=== PATIENT | male | born 1980 | race Caucasian/White ===

== ENCOUNTER 2016-10-31 17:25 | Emergency (ER) | payer BC ==
[2016-10-31] MEDS ORDERED: Ondansetron INJ* 2 MG/ML VIAL IV ONE (17:38)
[2016-10-31] MEDS ORDERED: NS 0.9% 1000 ML* 2,000 ML IV ONE (17:38)
[2016-10-31] MEDS ORDERED: Morphine INJ* 4 MG/ML 1 ML SYRINGE IV ONE ×2 (17:38→18:08)
--- NOTE | 2016-10-31 17:43 | ED ---
Hans Qureshi Billy, scribed for Consuelo Urias MD on 10/31/16 at 1742 . Abdominal Pain/Male - HPI Summary HPI Summary: Patient is a 36 year-old male coming to [facility] with a co-worker for evaluation of sudden onset of abdominal pain at 1530 today. He states that the pain began while he was walking, and he denies any trauma or strenuous exertion at onset. The pain is a non-radiating, sharp stabbing pain. Patient reports that it feels similar to previous episodes of diverticulitis, but today's episode began much more suddenly than usual. He took Tums without any improvement. Denies any pain in the genitals. Nothing makes his pain better or worse. No fevers, chills. pt had a soft BM this am. Pt reports feels constipated. Pt had a near syncopal episode in [facility] upon arrival to ED. Denies any PSHx of the abdomen. All medications were reviewed this visit. - History of Current Complaint Chief Complaint: EDDizziness Stated Complaint: ABD PAIN Time Seen by Provider: 10/31/16 17:32 Hx Obtained From: Patient Onset/Duration: Sudden Onset, Lasting Hours Timing: Constant Severity Initially: Moderate Severity Currently: Moderate Pain Intensity: 8 Pain Scale Used: 0-10 Numeric Radiates: No Character: Sharp Aggravating Factor(s): Nothing Alleviating Factor(s): Nothing - Allergies/Home Medications Allergies/Adverse Reactions: Allergies Allergy/AdvReac Type Severity Reaction Status Date / Time Bee Venom Allergy Swelling Verified 10/31/16 17:32 PMH/Surg Hx/FS Hx/Imm Hx Endocrine/Hematology History: Denies: Hx Diabetes Cardiovascular History: Denies: Hx Coronary Artery Disease, Hx Myocardial Infarction GI History: Reports: Hx Diverticulosis, Hx Ulcer, Other GI Disorders - SBO Infectious Disease History: No Infectious Disease History: Denies: Traveled Outside the [place] in Last 30 Days - Family History Known Family History: Positive: Cardiac Disease - Social History Alcohol Use: None Substance Use Type: Reports: None Smoking Status (MU): Current Every Day Smoker Review of Systems Constitutional: Negative Eyes: Negative ENT: Negative Cardiovascular: Negative Respiratory: Negative Positive: Abdominal Pain Genitourinary: Negative Musculoskeletal: Negative Skin: Negative Neurological: Negative Psychological: Normal All Other Systems Reviewed And Are Negative: Yes Physical Exam Triage Information Reviewed: Yes Vital Signs On Initial Exam: Initial Vitals Temp Pulse Resp BP Pulse Ox 98.9 F 90 18 111/62 100 10/31/16 17:33 10/31/16 17:33 10/31/16 17:33 10/31/16 17:33 10/31/16 17:33 Vital Signs Reviewed: Yes Diagnostics - Vital Signs Vital Signs Temp Pulse Resp BP Pulse Ox 10/31/16 17:33 98.9 F 90 18 111/62 100 - Laboratory Result Diagrams: 10/31/16 17:35 10/31/16 17:35 Lab Statement: Any lab studies that have been ordered have been reviewed, and results considered in the medical decision making process. - CT CTA C/A/P CT Interpretation Completed By: Radiologist - 1. NO AORTIC ANEURYSM. NO INTIMAL FLAP TO SUGGEST DISSECTION. 2. NO PULMONARY ARTERIAL FILLING DEFECT TO SUGGEST PULMONARY EMBOLISM. 3. SIGMOID DIVERTICULITIS, WITHOUT LOCULATED FLUID COLLECTION TO SUGGEST ABSCESS. 4. EVIDENCE OF EXPOSURE TO GRANULOMATOUS DISEASE. - EKG 1729 EKG Interpretation: NSR 74 bpm, no acute ST/T-wave changes Re-Evaluation - Re-Evaluation First Eval Re-Evaluation Time: 18:10 Change: Improved Comment: Pain improved from 10/10 to 5/10 after morphine. Second Eval Re-Evaluation Time: 19:15 Change: Improved Comment: reviewed CT scan with pt. Will give IV cipro, flagyl. Pt would like to try discharge with oral analgesia. will attempt oral tabs in ED - decline at present Third Eval Re-Evaluation Time: 20:59 Change: Improved Comment: Patient expressed that he would like to try having food and to be discharged soon. Fourth Eval Re-Evaluation Time: 21:45 Comment: Pt pain intensified - not controlled with percocet - will admit obs. d /w hospitalist -accepting pt Abdominal Pain Fem Course/Dx - Diagnoses Provider Diagnoses: Diverticulitis - Provider Notifications Discussed Care Of Patient With: Dr. Story (hospitalist) at 2140: accepts admission. Discharge - Discharge Plan Condition: Stable Disposition: ADMITTED TO [facility] Prescriptions: Ciprofloxacin TAB* [Cipro 500 MG TAB*] 500 mg PO BID #20 tab Metronidazole [Flagyl 500 MG TAB] 500 mg PO TID #30 tab oxyCODONE/Acetamin 5/325 MG* [Percocet 5/325 TAB*] 1 tab PO Q8H PRN #15 tab MDD 3 PRN Reason: Pain Patient Education Materials: Diverticulitis (ED) Forms: *Work Release Referrals: No Primary Care Phys,NOPCP [Primary Care Provider] - Additional Instructions: - Stay well hydrated - drink plenty of non-alcoholic, non-caffinated beverages - Take antibiotics as prescribed until gone - It is okay to take tylenol product (Tylenol or Percocet) every 6 hours for pain. Take with food - do NOT drive, operate machinery or drink alcohol while taking Percocet - It is recommended you take bland diet - dry toast, scrambled eggs, plain noodles ,plenty of non-alcoholic, non-caffinated beverages for the next 2-3 days - Because you do not have a doctor - contact the physician referral center tomorrow to schedule a follow-up appointment. Contact the referral center or return to the emergency department with questions or concerns The documentation as recorded by the Hans crouch Billy accurately reflects the service I personally performed and the decisions made by me, Consuelo Urias MD.
[2016-10-31 17:48] LABS: Hematocrit 49 % (42-52); Hemoglobin 16.5 g/dl (14.0-18.0); Mean Corpuscular HGB Conc 34 g/dl (31-36); Mean Corpuscular Hemoglobin 30 pg (27-31); Mean Corpuscular Volume 88 fL (80-94); Mean Platelet Volume 10 um3 (7.4-10.4); Red Blood Count 5.52 10^6/ul (4.0-5.4); Red Cell Distribution Width 13 % (10.5-15); White Blood Count 13.2 10^3/ul (3.5-10.8)
[2016-10-31 18:08] LABS: Albumin 4.3 g/dL (3.2-5.2); BUN/Creatinine Ratio 12.1 (8-20); Calcium 9.5 mg/dL (8.6-10.3); EGFR African American 73.7 (>60); EGFR Non-African American 57.3 (>60); Globulin 2.7 g/dL (2-4); Magnesium 2.1 mg/dL (1.9-2.7); Total Bilirubin 0.5 mg/dL (0.2-1.0); Troponin I 0.01 ng/mL (<0.04)
[2016-10-31 18:09] LABS: Potassium 3.9 mmol/L (3.5-5.0)
[2016-10-31] MEDS ORDERED: Iodixanol* (CONTRAST) 320 MG/ML 100 ML SDV IV ONE (18:12)
--- NOTE | 2016-10-31 18:55 | RAD ---
HISTORY: Epigastric and mid abdominal pain COMPARISONS: April 05, 2016 TECHNIQUE: Multiple contiguous axial CT scans were obtained of the chest, abdomen, and pelvis after the administration of intravenous contrast. Coronal and sagittal multiplanar reformations are submitted for review.. Oral contrast was not administered. 3-D volumetric reconstructions of the aorta are also submitted for review FINDINGS: CHEST NECK AND THYROID: The lower neck and thyroid are unremarkable. CHEST WALL: There is no lower cervical, axillary, or supraclavicular lymphadenopathy by size criteria. HEART AND PERICARDIUM: The heart is unremarkable. AORTA AND PULMONARY VASCULATURE: The aorta and pulmonary vasculature are normal. There is no pulmonary arterial filling defect to suggest pulmonary was. There is no aneurysmal patient of the aorta or intimal flap to suggest dissection. MEDIASTINUM: There are calcified mediastinal lymph nodes LORRIE: There are calcified hilar lymph nodes AIRWAY AND ESOPHAGUS: The airway is unremarkable, without endobronchial filling defect. The esophagus is grossly normal. LUNG PARENCHYMA: There are multiple calcified granulomas PLEURA: No pleural abnormalities are noted. BONES AND SOFT TISSUES: No bone or soft tissue abnormalities are noted. ABDOMEN/PELVIS: LIVER: The liver is normal in shape, size, contour, and attenuation. BILE DUCTS: There is no intrahepatic or extrahepatic biliary dilatation. GALLBLADDER: The gallbladder is normal, without pericholecystic inflammatory change. PANCREAS: The pancreas is normal, without mass or ductal dilatation. SPLEEN: Normal in size and appearance. UPPER GI TRACT: Evaluation of the gastrointestinal tract is limited by incomplete gastric distention. The upper GI tract is unremarkable. There is a calcified lymph node along the cardia of the stomach. SMALL BOWEL \T\ MESENTERY: The small bowel is normal in contour, course, and caliber. There is no obstruction or dilatation. COLON: There is diverticulosis of the sigmoid colon. There is stranding of the pericolonic fat at the rectosigmoid junction with a small amount of fluid along the lateroconal fascia. There is a tubular, vermiform, hollow viscus that is blind ending, and originates from the cecum, consistent with a normal appendix. There is no periappendiceal inflammatory change. ADRENALS: Normal bilaterally. KIDNEYS: A simple renal cyst is noted in the left BLADDER: The bladder is smooth in contour. PELVIC ORGANS: The prostate gland is normal. The seminal vesicles are symmetric. AORTA: The aorta is normal. There is no aneurysmal dilatation or intimal flap to suggest dissection IVC: Unremarkable LYMPH NODES: There is no lymphadenopathy by size criteria. ABDOMINAL WALL: There is no evidence for abdominal wall hernia. BONES: Unremarkable OTHER: None IMPRESSION: 1. NO AORTIC ANEURYSM. NO INTIMAL FLAP TO SUGGEST DISSECTION. 2. NO PULMONARY ARTERIAL FILLING DEFECT TO SUGGEST PULMONARY EMBOLISM. 3. SIGMOID DIVERTICULITIS, WITHOUT LOCULATED FLUID COLLECTION TO SUGGEST ABSCESS. 4. EVIDENCE OF EXPOSURE TO GRANULOMATOUS DISEASE.
[2016-10-31] MEDS ORDERED: Ciprofloxacin 400MG IVPREMIX(* 400 MG/200 ML BAG IVPB ONE (19:31)
[2016-10-31] MEDS ORDERED: metroNIDAZOLE IV 500 MG/100ML* 500 MG/100 ML BAG IVPB ONE (19:32)
[2016-10-31] MEDS ORDERED: oxyCODONE/Acetamin 5/325 MG* TAB PO ONE (21:03)
--- NOTE | 2016-11-01 00:33 | CONS ---
CONSULTATION REPORT: DATE OF CONSULT: 10/31/16 - EMERGENCY DEPT TIME OF EVALUATION: 2300. REASON FOR CONSULT: Evaluation for admission REQUESTING PHYSICIAN FOR CONSULTATION: Dr. Murray. CHIEF COMPLAINT: Abdominal pain. HISTORY OF PRESENT ILLNESS: This is a 36-year-old male with past medical history of diverticulitis who presents to the emergency room with abdominal pain , bloating and diarrhea. The patient states that this will be his fifth time of diverticulitis. His symptoms started 2 days ago with some diarrhea, abdominal pain, no fever. He states he normally does not drink alcohol, but few days ago, over the weekend, he celebrates his brother's birthday, was drinking, was not taking good care of himself. He did have some nausea. He had a presyncopal event in the waiting room. The pain got worse and it was a sudden onset. Today, the symptoms have been going on as mentioned for a few days. He states this has been in new location than his prior diverticulitis episodes. He denies any chest pain or shortness of breath. In the emergency room, the patient have labs, imaging. He had an episode where he became very upset, asking for food, pain medication. He was given 2 Percocet and had a turkey sandwich on my encounter. I saw the patient. He states he felt much better. The pain is still there, but manageable. He is asking to be discharged to home with followup with a primary care physician. We spoke about getting him set up with a inspector receiving which he is agreeable to as well. Otherwise, remaining review of systems is negative. PAST MEDICAL HISTORY: History of diverticulitis. This is his fourth episode, most recent back in April 2016. MEDICATIONS: None. ALLERGIES: BEE VENOM. FAMILY HISTORY: Reviewed and noncontributory. SOCIAL HISTORY: The patient is a duty officer. Rare alcohol use. He smokes about a pack every day and half past 18 years. His healthcare proxy is his mother, Raegan Daniel. REVIEW OF SYSTEMS: As mentioned in the HPI. PHYSICAL EXAM: Vitals: Temp 98.9, pulse rate 90, respiratory rate 18, oxygen saturation 100% on room air, blood pressure 111/62. General: In no acute distress. Resting comfortably with friend at the bedside. HEENT: Pupils equal and reactive. Anicteric. Head is normocephalic. Oropharynx: Mucous membranes moist. Neck is supple. No lymphadenopathy. Cardiac: Regular rate and rhythm. No murmurs, rubs, or gallops. Respiratory: Clear to auscultation. No wheezes, rhonchi or rales. Abdomen: Hypoactive bowel sounds. Soft. Nondistended. There was some mild tenderness to suprapubic region. Extremities : No clubbing, cyanosis or edema. +1 DPs. Neurologic: Alert and oriented x3. No focal neurologic deficits. DIAGNOSTIC STUDIES/LAB DATA: White count 30.2, hemoglobin 16.5, hematocrit 49, platelets 178. Sodium 135, potassium 3.9, chloride 101, bicarb 28, BUN 17, creatinine 1.4, glucose 101. Urine is unremarkable. Radiographic data: Abdominal and pelvic CT diverticulitis without loculated fluid collection to suggest abscess. ASSESSMENT: This is a 36-year-old male with past medical history of diverticulitis who presents to the emergency room with abdominal pain and found to have diverticulitis on his imaging studies. The patient's pain has improved. He is able to tolerate a turkey sandwich. His pain was managed with 2 Percocet. He is interested in going home. I discussed with Dr. Murray continuing him on Cipro and Flagyl and Percocet as needed for pain. I discussed with the patient bland diet to advance as tolerated. He should follow up with a inspector receiving for further investigation of his recurrent diverticulitis. The patient was also noted to have an elevated creatinine. I suspect this is secondary to his decrease in p.o. intake. Recommended hydration and followup with his primary for renal function. My recommendations were discussed with Dr. Murray. PATIENT TIME: Greater than 60 minutes spent doing this consultation, more than half the time spent in direct patient contact. [id number]/[facility] #: [id number] [facility]
[2016-11-01] MEDS ORDERED: oxyCODONE/Acetamin 5/325 MG* TAB PO ONE (00:48)
[2016-11-01 01:18] VITALS: BP 107/60
--- NOTE | 2016-11-01 01:47 | ED ---
Lissy Qureshi Alok, scribed for Paxton Murray on 11/01/16 at 0015 . Progress - Progress Note Progress Note: Pt was signed out after evaluation from hospitalist. - Results/Orders Results/Orders: Pt was signed out after evaluation from hospitalist. Pt states he wants to go home and will be discharged with diverticulitis. Re-Evaluation - Re-Evaluation First Eval Re-Evaluation Time: 18:10 Change: Improved Comment: Pain improved from 10/10 to 5/10 after morphine. Second Eval Re-Evaluation Time: 19:15 Change: Improved Comment: reviewed CT scan with pt. Will give IV cipro, flagyl. Pt would like to try discharge with oral analgesia. will attempt oral tabs in ED - decline at present Third Eval Re-Evaluation Time: 20:59 Change: Improved Comment: Patient expressed that he would like to try having food and to be discharged soon. Course/Dx - Diagnoses Provider Diagnoses: Diverticulitis - Provider Notifications Discussed Care Of Patient With: Dr. Story (hospitalist) at 2140: accepts admission. Dr. Story (hospitalist) @ 0017 - Pt would like to go home and will be discharged The documentation as recorded by the Lissy cruoch Alok accurately reflects the service I personally performed and the decisions made by me, Paxton Murray.
== END 2016-11-01 00:35 | disposition short-term general hospital (02) ==
LOC: ED 17:25
DX: K57.92 Diverticulitis of intestine, part unspecified, without perforation or abscess without bleeding (principal); R10.9 Unspecified abdominal pain; F17.210 Nicotine dependence, cigarettes, uncomplicated
CPT/HCPCS: 36415; 71275; 74174; 80053; 82550; 83605; 83690; 83735; 84484; 85025; 93005; 96374; 96375; 99283; A9270-GY; J0744; J2270; J2405; Q9967

== ENCOUNTER 2017-05-31 20:10 | Emergency (ER) | payer BC ==
[2017-05-31 21:32] LABS: Hematocrit 46 % (42-52); Hemoglobin 15.9 g/dl (14.0-18.0); Mean Corpuscular HGB Conc 34 g/dl (31-36); Mean Corpuscular Hemoglobin 31 pg (27-31); Mean Corpuscular Volume 89 fL (80-94); Mean Platelet Volume 10 um3 (7.4-10.4); Red Blood Count 5.17 10^6/ul (4.0-5.4); Red Cell Distribution Width 13 % (10.5-15); White Blood Count 15.4 10^3/ul (3.5-10.8)
[2017-05-31 21:48] LABS: ALT 26 U/L (7-52); Albumin 4.3 g/dL (3.2-5.2); Alkaline Phosphatase 80 U/L (34-104); BUN/Creatinine Ratio 13.2 (8-20); Blood Urea Nitrogen 16 mg/dL (6-24); CO2 Carbon Dioxide 28 mmol/L (22-32); Calcium 9.5 mg/dL (8.6-10.3); Chloride 103 mmol/L (101-111); EGFR African American 87.3 (>60); EGFR Non-African American 67.9 (>60); Globulin 2.2 g/dL (2-4); Glucose 81 mg/dL (70-100); Lipase 38 U/L (11.0-82.0); Sodium 137 mmol/L (133-145); Total Protein 6.5 g/dL (6.4-8.9)
[2017-05-31 21:55] LABS: Anion Gap 6 mmol/L (2-11)
[2017-05-31] MEDS ORDERED: Morphine INJ* 4 MG/ML 1 ML CARPUJECT IV ONE (22:42)
[2017-05-31] MEDS ORDERED: Ondansetron INJ* 2 MG/ML VIAL IV ONE (22:42)
[2017-05-31] MEDS ORDERED: Ketorolac INJ* 30 MG/ML 1 ML VIAL IV PUSH ONE (23:16)
[2017-05-31] MEDS ORDERED: NS 0.9% 1000 ML* 1,000 ML IV ONE (23:16)
[2017-06-01] MEDS ORDERED: Ciprofloxacin 400MG IVPREMIX(* 400 MG/200 ML BAG IVPB ONE (00:08)
[2017-06-01] MEDS ORDERED: metroNIDAZOLE TAB* 250 MG PO ONE (00:08)
[2017-06-01 00:30] LABS: Urine Bilirubin Negative (Negative); Urine Glucose Negative (Negative); Urine Nitrite Negative (Negative)
[2017-06-01 01:28] VITALS: BP 118/63
--- NOTE | 2017-06-01 04:40 | ED ---
Kim Qureshi Edward, scribed for Jeremy Carpio MD on 05/31/17 at 2234 . Abdominal Pain/Male - HPI Summary HPI Summary: 36 y/o male presents to the ED c/o sudden onset, constant ABD pain starting 2 hr [employer]ER GRAIN. The pain is described as a pressure, like a "heel of a boot". The pain is located in the lower ABD; pt thinks the L side might be worse but is unsure. Pt states he had a stressful night. PMHx diverticulitis. Denies ABD surgical history. Associated sx: nausea due to pain (resolved). - History of Current Complaint Chief Complaint: EDAbdPain Stated Complaint: ABD PAIN Hx Obtained From: Patient Onset/Duration: Sudden Onset, Lasting Hours Timing: Constant Severity Initially: Severe Severity Currently: Severe Pain Intensity: 7 Pain Scale Used: 0-10 Numeric Location: Suprapubic Character: Other: - pressure, "heel of a boot" Aggravating Factor(s): Nothing Alleviating Factor(s): Nothing Associated Signs And Symptoms: Positive: Nausea - Allergies/Home Medications Allergies/Adverse Reactions: Allergies Allergy/AdvReac Type Severity Reaction Status Date / Time Bee Venom Allergy Swelling Verified 10/31/16 17:32 PMH/Surg Hx/FS Hx/Imm Hx Previously Healthy: No Endocrine/Hematology History: Denies: Hx Diabetes Cardiovascular History: Denies: Hx Coronary Artery Disease, Hx Myocardial Infarction GI History: Reports: Hx Diverticulosis, Hx Ulcer, Other GI Disorders - SBO Infectious Disease History: No Infectious Disease History: Denies: Traveled Outside the [place] in Last 30 Days - Family History Known Family History: Positive: Cardiac Disease - Social History Occupation: Employed Full-time - works in a correction Alcohol Use: None Hx Substance Use: No Substance Use Type: Reports: None Hx Tobacco Use: Yes Smoking Status (MU): Current Every Day Smoker Review of Systems Constitutional: Negative Eyes: Negative ENT: Negative Cardiovascular: Negative Respiratory: Negative Positive: Abdominal Pain, Nausea Genitourinary: Negative Musculoskeletal: Negative Skin: Negative Neurological: Negative Psychological: Normal All Other Systems Reviewed And Are Negative: Yes Physical Exam Triage Information Reviewed: Yes Vital Signs On Initial Exam: Initial Vitals Temp Pulse Resp BP Pulse Ox 97.2 F 71 18 144/92 100 05/31/17 20:16 05/31/17 20:16 05/31/17 20:16 05/31/17 20:16 05/31/17 20:16 Vital Signs Reviewed: Yes Appearance: Positive: Well-Appearing, Pain Distress - Mild Skin: Positive: Warm, Skin Color Reflects Adequate Perfusion, Dry Head/Face: Positive: Normal Head/Face Inspection Eyes: Positive: EOMI, KATHERINE ENT: Positive: Normal ENT inspection Neck: Positive: Supple, Nontender Respiratory/Lung Sounds: Positive: Breath Sounds Present, Wheezes - Mild wheeze @ R base that clears with cough Cardiovascular: Positive: RRR, Pulses are Symmetrical in both Upper and Lower Extremities Abdomen Description: Positive: Soft, Other: - Tenderness @ LLQ and suprapubic region Bowel Sounds: Positive: Present Musculoskeletal: Positive: Normal, Strength/ROM Intact Neurological: Positive: Normal, Sensory/Motor Intact Diagnostics - Vital Signs Vital Signs Temp Pulse Resp BP Pulse Ox 05/31/17 20:16 97.2 F 71 18 144/92 100 - Laboratory Lab Results: Lab Results 05/31/17 05/31/17 05/31/17 Range/Units 21:15 21:15 21:15 WBC 15.4 H (3.5-10.8) 10^3/ul RBC 5.17 (4.0-5.4) 10^6/ul Hgb 15.9 (14.0-18.0) g/dl Hct 46 (42-52) % MCV 89 (80-94) fL MCH 31 (27-31) pg MCHC 34 (31-36) g/dl RDW 13 (10.5-15) % Plt Count 176 (150-450) 10^3/ul MPV 10 (7.4-10.4) um3 Neut % (Auto) 79.8 (38-83) % Lymph % (Auto) 16.5 L (25-47) % Hitchcock % (Auto) 2.6 (1-9) % Eos % (Auto) 0.7 (0-6) % Baso % (Auto) 0.4 (0-2) % Absolute Neuts (auto) 12.3 H (1.5-7.7) 10^3/ul Absolute Lymphs (auto) 2.6 (1.0-4.8) 10^3/ul Absolute Monos (auto) 0.4 (0-0.8) 10^3/ul Absolute Eos (auto) 0.1 (0-0.6) 10^3/ul Absolute Basos (auto) 0.1 (0-0.2) 10^3/ul Absolute Nucleated RBC 0.01 10^3/ul Nucleated RBC % 0.1 Sodium 137 (133-145) mmol/L Potassium TNP Chloride 103 (101-111) mmol/L Carbon Dioxide 28 (22-32) mmol/L Anion Gap 6 (2-11) mmol/L BUN 16 (6-24) mg/dL Creatinine 1.21 H (0.67-1.17) mg/dL Est GFR ( Amer) 87.3 (>60) Est GFR (Non-Af Amer) 67.9 (>60) BUN/Creatinine Ratio 13.2 (8-20) Glucose 81 (70-100) mg/dL Lactic Acid 0.8 (0.5-2.0) mmol/L Calcium 9.5 (8.6-10.3) mg/dL Total Bilirubin 0.40 (0.2-1.0) mg/dL AST TNP ALT 26 (7-52) U/L Alkaline Phosphatase 80 (34-104) U/L C-React Prot High Sens 1.22 mg/L Total Protein 6.5 (6.4-8.9) g/dL Albumin 4.3 (3.2-5.2) g/dL Globulin 2.2 (2-4) g/dL Albumin/Globulin Ratio 2.0 (1-3) Lipase 38 (11.0-82.0) U/L Result Diagrams: 05/31/17 21:15 05/31/17 21:15 Lab Statement: Any lab studies that have been ordered have been reviewed, and results considered in the medical decision making process. - CT ABD/PEL CT CT Interpretation: No Acute Changes - Bilateral lung base calcified granulomata present. There is abnormal wall thickening involving the proximal sigmoid colon containing diverticula with surrounding mesenteric induration consistent with acute diverticulitis. No CT evidence of perforation, extraluminal air or abscess identified. No evidenc of mechanical bowel obstrcution. no evidence of gallstone or urinary sotne. Exophytic left renal cortical cyst. Normal appendix visualized. CT Interpretation Completed By: Radiologist - ED PHYSICIAN REVIEWS AND AGREES Re-Evaluation - Re-Evaluation 1 Re-Evaluation Time: 00:01 Change: Improved Comment: Discuss CT results and plan of care. Pt does not want to be admitted and will be d/c home. Abdominal Pain Fem Course/Dx - Course Course Of Treatment: Pt with recurrent diverticulitis. CT proven again today. Pt does not want to be admitted and will be d/c home -- 1st dose antibiotics given here. Refer to surgery given recurrent disease. May need partial colectomy in future. - Diagnoses Differential Diagnosis/HQI/PQRI: Diverticulitis, Ureteral Stone Provider Diagnoses: Diverticulitis Discharge - Discharge Plan Condition: Improved Disposition: HOME Prescriptions: Ciprofloxacin TAB* [Cipro 500 MG TAB*] 500 mg PO BID #14 tab HYDROcodone/ACETAMIN 5-325 MG* [[place] 5-325 TAB*] 1 tab PO Q6H PRN #12 tab MDD 4 tablets PRN Reason: Pain - Abdominal Metronidazole [Flagyl 500 MG TAB] 500 mg PO TID #21 tab Patient Education Materials: Diverticulitis (ED), Diverticulitis Diet (ED) Forms: *Work Release Referrals: Keith Spencer MD [Medical Doctor] - Additional Instructions: Primary care referral given. Return with fever, vomiting, uncontrolled pain, worse or other concerns. The documentation as recorded by the Kim crouch Edward accurately reflects the service I personally performed and the decisions made by me, Jeremy Carpio MD.
--- NOTE | 2017-06-01 07:54 | RAD ---
INDICATION: Left lower quadrant pain. History of diverticulitis COMPARISON: CT chest/abdomen/pelvis October 31, 2016 TECHNIQUE: Noncontrast axial source images were obtained from the hemidiaphragms to the symphysis pubis. This examination was ordered using a renal stone protocol which is performed without oral or intravenous contrast and therefore has inherent limitations when used to evaluate other intra-abdominal or intrapelvic pathology. Consider conventional contrast enhanced imaging if clinically indicated. Lung bases: There are calcified granulomas in the lung bases. Liver: The liver is normal in size. Noncontrast imaging shows no evidence of a hepatic mass or ductal dilatation. Gallbladder: There are no calcified gallstones. There is no evidence of wall thickening or pericholecystic fluid.. Spleen: The spleen is normal in size. The noncontrast CT appearance is remarkable for splenic granulomas. Pancreas: Noncontrast imaging shows no pancreatic mass or ductal dilitation. Adrenal glands: No masses are identified. Kidneys/Bladder: There is no evidence of nephrolithiasis or CT evidence of hydronephrosis. Noncontrast imaging shows a 2.4 cm midpole left renal cyst. The bladder is unremarkable.. Adenopathy: There is no evidence of intraperitoneal or retroperitoneal adenopathy. Evaluation is limited without oral contrast. Fluid collections: There is no localized fluid collection but there is perienteric stranding at the level the sigmoid colon consistent with inflammatory response.. Vessels: The aorta and iliac vessels are normal in caliber. There are no significant atherosclerotic changes. The IVC appears normal Pelvic organs: The prostate and seminal vesicles appear normal GI tract: Evaluation is limited as no oral contrast was given. There are no gross abnormalities the upper GI tract. There is bowel wall thickening of the sigmoid colon with perienteric stranding. There are multiple diverticula. The findings are compatible with recurrent acute diverticulitis. There are no findings of obstruction, perforation, or abscess. Soft tissues: No soft tissue abnormalities of the extraperitoneal abdomen or pelvis are identified. Osseous structures: There are no acute osseous findings. IMPRESSION: DIVERTICULITIS SIGMOID COLON WITHOUT OBSTRUCTION, PERFORATION OR ABSCESS.
== END 2017-06-01 01:43 | disposition home or self-care (01) ==
LOC: ED 20:10
DX: K57.92 Diverticulitis of intestine, part unspecified, without perforation or abscess without bleeding (principal); F17.200 Nicotine dependence, unspecified, uncomplicated
CPT/HCPCS: 36415; 74176; 80053; 81003; 83605; 83690; 85025; 86141; 96360; 96374; 96375; 99283; A9270-GY; J0744; J1885; J2270; J2405

== ENCOUNTER 2018-02-13 22:01 | Emergency (ER) | payer BC ==
[2018-02-13] MEDS ORDERED: oxyCODONE TAB* 5 MG TAB PO ONE (22:50)
--- NOTE | 2018-02-13 22:50 | ED ---
Throat Pain/Nasal Congestion - HPI Summary HPI Summary: Patient complains of dental pain in right upper rear molar starting today. Patient states he felt like his tooth broke off while eating an apple. States pain 10 out of 10. Denies purulent discharge, fever, dysphagia, sore throat, ear pain, CODY, cough. Medical history is none. - History of Current Complaint Chief Complaint: EDDentalPain Hx Obtained From: Patient Onset/Duration: Sudden Onset Severity: Severe Associated Signs And Symptoms: Positive: Negative Cough: None - Allergies/Home Medications Allergies/Adverse Reactions: Allergies Allergy/AdvReac Type Severity Reaction Status Date / Time bee venom protein (honey bee) Allergy Swelling Verified 02/13/18 22:09 PMH/Surg Hx/FS Hx/Imm Hx Endocrine/Hematology History: Denies: Hx Anticoagulant Therapy, Hx Diabetes Cardiovascular History: Denies: Hx Coronary Artery Disease, Hx Myocardial Infarction GI History: Reports: Hx Diverticulosis, Hx Ulcer, Other GI Disorders - SBO Infectious Disease History: No Infectious Disease History: Denies: Traveled Outside the [place] in Last 30 Days - Family History Known Family History: Positive: Cardiac Disease - Social History Alcohol Use: None Hx Substance Use: No Substance Use Type: Reports: None Hx Tobacco Use: Yes Smoking Status (MU): Current Every Day Smoker Review of Systems Constitutional: Negative Eyes: Negative Positive: Dental Pain Cardiovascular: Negative Respiratory: Negative Gastrointestinal: Negative Genitourinary: Negative Musculoskeletal: Negative Skin: Negative Neurological: Negative Psychological: Normal All Other Systems Reviewed And Are Negative: Yes Physical Exam - Summary Physical Exam Summary: Caries evident at rear most upper molar. No indication of abscess, purulent drainage, swelling, or lesions. Triage Information Reviewed: Yes Vital Signs On Initial Exam: Initial Vitals Temp Pulse Resp BP Pulse Ox 97.8 F 77 18 136/79 96 02/13/18 22:06 02/13/18 22:06 02/13/18 22:06 02/13/18 22:06 02/13/18 22:06 Vital Signs Reviewed: Yes Appearance: Positive: Well-Appearing Skin: Positive: Warm Head/Face: Positive: Normal Head/Face Inspection Eyes: Positive: Normal ENT: Positive: Normal ENT inspection Dental: Positive: Gross Decay/Caries @ Neck: Positive: Supple Respiratory/Lung Sounds: Positive: Clear to Auscultation Cardiovascular: Positive: Normal Abdomen Description: Positive: Nontender Musculoskeletal: Positive: Normal Neurological: Positive: Normal Psychiatric: Positive: Normal AVPU Assessment: Alert - [place] Coma Scale Best Eye Response: 4 - Spontaneous Best Motor Response: 6 - Obeys Commands Best Verbal Response: 5 - Oriented Coma Scale Total: 15 Diagnostics - Vital Signs Vital Signs Temp Pulse Resp BP Pulse Ox 02/13/18 22:06 97.8 F 77 18 136/79 96 - Laboratory Lab Statement: Any lab studies that have been ordered have been reviewed, and results considered in the medical decision making process. EENT Course/Dx - Course Course Of Treatment: Patient complains of dental pain in right upper rear molar starting today. Patient states he felt like his tooth broke off while eating an apple. States pain 10 out of 10. Denies purulent discharge, fever, dysphagia, sore throat, ear pain, CODY, cough. Medical history is none. Physical exam:Caries evident at rear most upper molar. No indication of abscess , purulent drainage, swelling, or lesions. Rx for Pen-Vee K and hydrocodone. Patient started here with same. Follow-up with dental surgeon. - Diagnoses Provider Diagnoses: Pain, dental Discharge - Sign-Out/Discharge Documenting (check all that apply): Patient Departure - Discharge Plan Condition: Stable Disposition: HOME Prescriptions: Oxycodone HCl 5 mg PO TID 2 Days #9 tablet MDD 3 tabs Penicillin VK 500 MG TAB(NF) [Penicillin VK 500 mg Tab] 500 mg PO QID 7 Days # 28 tab Patient Education Materials: Toothache (ED) Referrals: No Primary Care Phys,NOPCP [Primary Care Provider] - CASTILLO QUIGLEY [Doctor of Dental Surgery] - Additional Instructions: Follow-up with dentist surgeon Dr. Quigley. Return to the ED for any new or worsening symptoms - Billing Disposition and Condition Condition: STABLE Disposition: Home
[2018-02-13] MEDS ORDERED: Penicillin VK TAB* 250 MG PO SCH (23:00)
[2018-02-13 23:18] VITALS: BP 128/76
== END 2018-02-13 23:20 | disposition home or self-care (01) ==
LOC: ED 22:01
DX: K08.89 Other specified disorders of teeth and supporting structures (principal)
CPT/HCPCS: 99282; A9270-GY

== ENCOUNTER 2018-05-04 22:48 | Emergency (ER) | payer BC ==
[2018-05-05] MEDS ORDERED: NS 0.9% 1000 ML* 1,000 ML IV ONE ×2 (00:14→01:06)
[2018-05-05 01:15] LABS: ABS Basophils 0 10^3/ul (0-0.2); ABS Eosinophils 0.1 10^3/ul (0-0.6); ABS Lymphocytes 2.3 10^3/ul (1.0-4.8); ABS Monocytes 0.4 10^3/ul (0-0.8); ABS Neutrophils 6.4 10^3/ul (1.5-7.7); ABS Nucleated RBC 0 10^3/ul; Hematocrit 48 % (42-52); Hemoglobin 16.7 g/dl (14.0-18.0); Lymphocyte % 24.8 % (25-47); Mean Corpuscular HGB Conc 35 g/dl (31-36); Mean Corpuscular Hemoglobin 31 pg (27-31); Mean Corpuscular Volume 89 fL (80-94); Mean Platelet Volume 8.7 fL (7.4-10.4); Nucleated Red Blood Cells % 0; Platelet Count 204 10^3/ul (150-450); Red Blood Count 5.38 10^6/ul (4.00-5.40); Red Cell Distribution Width 13 % (10.5-15); White Blood Count 9.2 10^3/ul (3.5-10.8)
[2018-05-05 01:34] VITALS: BP 139/94
[2018-05-05 01:34] LABS: EGFR Non-African American 87.1 (>60)
--- NOTE | 2018-05-05 01:50 | ED ---
Nausea/Vomiting/Diarrhea HPI - HPI Summary HPI Summary: Patient complains of diarrhea starting this morning at 2 AM 20 episodes, associated with chills, sweating. States one episode of diarrhea in the past 3 hours, feels like it is improving. Denies fever, cough, sore throat, CP, SOB, N /V, abdominal pain, change in urine, blood in stool. Medical history is diverticulitis. - History of Current Complaint Chief Complaint: EDAbdPain Stated Complaint: ABD PAIN Time Seen by Provider: 05/04/18 23:10 Hx Obtained From: Patient Onset/Duration: Sudden Onset Severity Currently: None Pain Intensity: 0 Aggravating Factor(s): Nothing Alleviating Factor(s): Nothing Nausea/Vomiting Presence: None Diarrhea Presence: Yes Diarrhea Frequency: Every 1-2 hours - Allergies/Home Medications Allergies/Adverse Reactions: Allergies Allergy/AdvReac Type Severity Reaction Status Date / Time bee venom protein (honey bee) Allergy Swelling Verified 02/13/18 22:09 Home Medications: Home Medications NK [No Home Medications Reported] 05/04/18 [History Confirmed 05/04/18] PMH/Surg Hx/FS Hx/Imm Hx Endocrine/Hematology History: Denies: Hx Anticoagulant Therapy, Hx Diabetes Cardiovascular History: Denies: Hx Coronary Artery Disease, Hx Myocardial Infarction GI History: Reports: Hx Diverticulosis, Hx Ulcer, Other GI Disorders - SBO Infectious Disease History: No Infectious Disease History: Denies: Traveled Outside the [place] in Last 30 Days - Family History Known Family History: Positive: Cardiac Disease - Social History Alcohol Use: None Hx Substance Use: No Substance Use Type: Reports: None Hx Tobacco Use: Yes Smoking Status (MU): Current Every Day Smoker Review of Systems Constitutional: Negative Eyes: Negative ENT: Negative Cardiovascular: Negative Respiratory: Negative Positive: Diarrhea Genitourinary: Negative Musculoskeletal: Negative Skin: Negative Neurological: Negative Psychological: Normal All Other Systems Reviewed And Are Negative: Yes Physical Exam - Summary Physical Exam Summary: No abdominal pain noted. Triage Information Reviewed: Yes Vital Signs On Initial Exam: Initial Vitals Temp Pulse Resp BP Pulse Ox 98.5 F 75 16 138/82 99 05/04/18 22:53 05/04/18 22:53 05/04/18 22:53 05/04/18 22:53 05/04/18 22:53 Vital Signs Reviewed: Yes Appearance: Positive: Well-Appearing Skin: Positive: Warm Head/Face: Positive: Normal Head/Face Inspection Eyes: Positive: Normal Neck: Positive: Supple Respiratory/Lung Sounds: Positive: Clear to Auscultation Cardiovascular: Positive: Normal Abdomen Description: Positive: Nontender Musculoskeletal: Positive: Normal Neurological: Positive: Normal Psychiatric: Positive: Normal AVPU Assessment: Alert - [place] Coma Scale Best Eye Response: 4 - Spontaneous Best Motor Response: 6 - Obeys Commands Best Verbal Response: 5 - Oriented Coma Scale Total: 15 Diagnostics - Vital Signs Vital Signs Temp Pulse Resp BP Pulse Ox 05/04/18 22:53 98.5 F 75 16 138/82 99 - Laboratory Lab Results: Lab Results 05/05/18 05/05/18 05/05/18 Range/Units 01:07 EST 01:07 EST 01:07 EST WBC 9.2 (3.5-10.8) 10^3/ul RBC 5.38 (4.00-5.40) 10^6/ul Hgb 16.7 (14.0-18.0) g/dl Hct 48 (42-52) % MCV 89 (80-94) fL MCH 31 (27-31) pg MCHC 35 (31-36) g/dl RDW 13 (10.5-15) % Plt Count 204 (150-450) 10^3/ul MPV 8.7 (7.4-10.4) fL Neut % (Auto) 69.1 (38-83) % Lymph % (Auto) 24.8 L (25-47) % [place] % (Auto) 4.8 (0-7) % Eos % (Auto) 1.0 (0-6) % Baso % (Auto) 0.3 (0-2) % Absolute Neuts (auto) 6.4 (1.5-7.7) 10^3/ul Absolute Lymphs (auto) 2.3 (1.0-4.8) 10^3/ul Absolute Monos (auto) 0.4 (0-0.8) 10^3/ul Absolute Eos (auto) 0.1 (0-0.6) 10^3/ul Absolute Basos (auto) 0 (0-0.2) 10^3/ul Absolute Nucleated RBC 0 10^3/ul Nucleated RBC % 0 Sodium 137 (135-145) mmol/L Potassium 3.9 (3.5-5.0) mmol/L Chloride 105 (101-111) mmol/L Carbon Dioxide 28 (22-32) mmol/L Anion Gap 4 (2-11) mmol/L BUN 11 (6-24) mg/dL Creatinine 0.97 (0.67-1.17) mg/dL Est GFR ( Amer) 105.4 (>60) Est GFR (Non-Af Amer) 87.1 (>60) BUN/Creatinine Ratio 11.3 (8-20) Glucose 103 H (70-100) mg/dL Lactic Acid 0.8 (0.5-2.0) mmol/L Calcium 9.0 (8.6-10.3) mg/dL Total Bilirubin 0.50 (0.2-1.0) mg/dL AST 31 (13-39) U/L ALT 51 (7-52) U/L Alkaline Phosphatase 69 (34-104) U/L C-Reactive Protein 1.05 (<8.01) mg/L Total Protein 6.9 (6.4-8.9) g/dL Albumin 4.3 (3.2-5.2) g/dL Globulin 2.6 (2-4) g/dL Albumin/Globulin Ratio 1.7 (1-3) Lipase 21 (11.0-82.0) U/L Result Diagrams: 05/05/18 01:07 EST 05/05/18 01:07 EST Lab Statement: Any lab studies that have been ordered have been reviewed, and results considered in the medical decision making process. Naus/Vom/Diarrhea Course/Dx - Course Course Of Treatment: Patient complains of diarrhea starting this morning at 2 AM 20 episodes, associated with chills, sweating. States one episode of diarrhea in the past 3 hours, feels like it is improving. Denies fever, cough, sore throat, CP, SOB, N/V, abdominal pain, change in urine, blood in stool. Medical history is diverticulitis. Physical exam unremarkable. Vital signs within normal limits. Patient states he will hydrate himself as preference over IV fluids. No active diarrhea here in the ED. - Differential Dx/Diagnosis Provider Diagnoses: diarrhea Condition At Discharge: Stable Discharge - Sign-Out/Discharge Documenting (check all that apply): Patient Departure - Discharge Plan Condition: Stable Disposition: HOME Patient Education Materials: Acute Diarrhea (ED) Forms: *Work Release Referrals: No Primary Care Phys,NOPCP [Primary Care Provider] - [facility] [Outside] Additional Instructions: Drink plenty of fluids. Follow-up with primary care. Return to the ED for any new or worsening symptoms - Billing Disposition and Condition Condition: STABLE Disposition: Home
--- NOTE | 2018-05-05 09:38 | RAD ---
INDICATION: Abdominal pain COMPARISON: None TECHNIQUE: PA and lateral views of the chest were obtained. FINDINGS: The heart and mediastinum are normal in size and contour. The lungs are grossly clear. There is no evidence of large pleural effusion. Visualized bones are normal for the patient's age. There is no radiographic evidence of free air beneath the diaphragm IMPRESSION: No radiographic evidence of acute cardiopulmonary disease. R0
== END 2018-05-05 01:34 | disposition home or self-care (01) ==
LOC: ED 22:48
DX: R19.7 Diarrhea, unspecified (principal); Z91.030 Bee allergy status; F17.200 Nicotine dependence, unspecified, uncomplicated
CPT/HCPCS: 36415; 71046; 80053; 83605; 83690; 85025; 86140; 99283